=== PATIENT | male | born 1990 | race Caucasian/White ===

== ENCOUNTER → 2018-11-18 | Outpatient (CLI) | payer OTHER ==
--- NOTE | 2018-11-18 16:33 | PCVCIMAG ---
APPROVED REPORT Study performed: 11/18/2018 13:31:02 EXAM: Comprehensive 2D, Doppler, and color-flow Echocardiogram Patient Location: Echo lab Status: routine BSA: 2.24 HR: 81 bpmBP: 136/86 mmHg Rhythm: NSR Other Information Study Quality: Adequate Risk Factors: Cardiac Risk Factors: HTN, Hyperlipidemia Indications Dizziness and Vertigo 2D Dimensions IVSd: 10.27 (7-11mm) LVDd: 48.77 mm PWd: 8.68 (7-11mm) LVDs: 28.17 (25-40mm) Left Atrium: 37.52 (27-40mm) Aortic Root: 27.04 mm LV Single Plane 4CH: 54.47 % LV Single Plane 2CH: 61.75 % Biplane EF: 58.1 % Volumes Left Atrial Volume (Systole) Single Plane 4CH: 40.22 mLSingle Plane 2CH: 41.77 mL LA ESV Index: 19.00 mL/m2 Aortic Valve AoV Peak Geo.: 1.38 m/s AO Peak Gr.: 7.67 mmHgLVOT Max P.78 mmHg LVOT Max V: 1.20 m/s Mitral Valve E/A Ratio: 1.4 MV Decel. Time: 214.90 ms MV E Max Geo.: 0.63 m/s MV A Geo.: 0.44 m/s IVRT: 86.51 ms Pulmonary Valve PV Peak Geo.: 1.22 m/sPV Peak Gr.: 5.93 mmHg Pulmonary Vein P Vein S: 0.45 m/sP Vein A: 0.41 m/s P Vein D: 0.73 m/sP Vein A Dur.: 110.7 msec P Vein S/D Ratio: 0.62 Tricuspid Valve TR Peak Geo.: 2.71 m/s TR Peak Gr.: 29.31 mmHg Left Ventricle The left ventricle is normal size. There is normal LV segmental wall motion. There is normal left ventricular wall thickness. Left ventricular systolic function is normal. The left ventricular ejection fraction is within the normal range. LVEF is 55-60%. The left ventricular diastolic function is normal. Right Ventricle The right ventricle is normal size. The right ventricular systolic function is normal. Atria The left atrium size is normal. The right atrium size is normal. Aortic Valve The aortic valve is normal in structure. No aortic regurgitation is present. There is no aortic valvular stenosis. Mitral Valve The mitral valve is normal in structure. Trace mitral regurgitation. No evidence of mitral valve stenosis. Tricuspid Valve The tricuspid valve is normal in structure. Trace tricuspid regurgitation with PAP of 35 mmHg. Pulmonic Valve The pulmonary valve is normal in structure. Trace pulmonic regurgitation. Great Vessels The aortic root is normal in size. IVC is normal in size and collapses >50% with inspiration. Pericardium There is no pericardial effusion. There is no pleural effusion. <Conclusion> Left ventricular systolic function is normal. There is normal LV segmental wall motion. LVEF is 55-60%. Normal diastolic function Structural valvular disease was absent. There are no significant regurgitant or stenotic lesions. Trace tricuspid regurgitation with pulmonary artery pressure of 35 mmHg. There is no pericardial effusion.
--- NOTE | 2018-11-18 16:36 | PCVCIMAG ---
APPROVED REPORT Patient Location: Echo lab Room #: Stress Nurse: Nina Roach RN Treadmill stress test Indications- htn, hlp, dizziness The patient exercised according to the [employer] protocol for 13:11 mins; achieving a work level of 17.5 METS. The resting heart rate of 82 bpm andre to a maximum heart rate of 193 bpm. This value represent 100% of the maximal, age-predicted heart rate. The resting blood pressure of 136/86 mmHg, andre to a maximum blood pressure of 184/80 mmHg. The exercise test was stopped due to fatigue and dyspnea. Resting EKG: Sinus rhythm normal tracing Stress EKG: No dysrhythmias. No diagnostic ischemic electrocardiographic changes Conclusion 1. Maximal treadmill exercise study negative for exercise-induced myocardial ischemia. 2. No subjective signs of ischemia. No diagnostic ischemic electrocardiographic changes. 3. The study was associated with good exercise capacity (17.5 METS). Low [place] treadmill exercise score.
== END | disposition home or self-care (01) ==
LOC: PCVCIMAG 14:24
PROVIDERS: ATTEND Internal Medicine
DX: R42 Dizziness and giddiness (principal); I10 Essential (primary) hypertension; E78.5 Hyperlipidemia, unspecified; R07.9 Chest pain, unspecified
CPT/HCPCS: 93017; 93306